=== PATIENT | male | born 1970 | race Two or more races ===

== ENCOUNTER 2022-06-09 06:49 | Day surgery (SDC) | payer OTHER ==
[~2022-06-09] VITALS: Ht 172.7 cm; Wt 78.9 kg
[~2022-06-09 06:49] MED LIST: VITAMIN D PO
== END 2022-06-10 00:35 | disposition home or self-care (01) ==
LOC: CIR.AMB 06:49
PROVIDERS: ATTEND Orthopaedic Surgery Hand Surgery
DX: S52.571A Other intraarticular fracture of lower end of right radius, initial encounter for closed fracture (principal); Z20.822 Contact with and (suspected) exposure to COVID-19